=== PATIENT | female | born 1960 | race Caucasian/White ===

== ENCOUNTER 2017-01-14 13:27 | Emergency (ER) | payer MEDICARE, MEDICAID | END 2017-01-14 15:28 | disposition home or self-care (01) | LOC: D.ER 13:27 | DX: Z00.00 Encounter for general adult medical examination without abnormal findings (principal) ==

== ENCOUNTER → 2020-08-03 18:30 | Outpatient (CLI) | payer MEDICARE, MEDICAID | END | disposition home or self-care (01) | LOC: D.MAMMO 14:30 | PROVIDERS: ATTEND Emergency Medicine | DX: Z00.00 Encounter for general adult medical examination without abnormal findings (principal) ==